=== PATIENT | female | born 1960 | race Two or more races ===

== ENCOUNTER 2020-08-23 07:50 | Day surgery (SDC) | payer OTHER ==
[~2020-08-23 07:50] MED LIST: NABUMETONE500 MG PO; PERCOCET 5/3251 TAB PO; ZESTRIL5 MG PO
[2020-08-23] MEDS ORDERED: PERCOCET 5-3251 EACH PO (13:28)
== END 2020-08-23 17:50 | disposition home or self-care (01) ==
LOC: CIR.AMB 07:50
PROVIDERS: ATTEND Surgery
DX: D35.1 Benign neoplasm of parathyroid gland (principal); Z20.822 Contact with and (suspected) exposure to COVID-19